=== PATIENT | male | born 2000 | race Caucasian/White ===

== ENCOUNTER 2019-03-08 02:18 | Emergency (ER) | payer BC, SELFPAY ==
[2019-03-08 02:19] VITALS: BP 163/134; PULSE 78; RESP 18; TEMP 36.3; O2SAT 96; BMI 21.2
[2019-03-08 02:25] VITALS: BP 105/56
--- NOTE | 2019-03-08 02:37 | ED.VIS.GEN ---
History of Present Illness Chief Complaint: ETOH Intox Informant: Patient Narrative: She stated he drank too much alcohol and had 2 episodes of emesis. He drank beer and liquor tonight. He is a college [employer] student. Came in for further evaluation as he is too intoxicated per patient. He is able to communicate. He stated he was nauseous but is no longer nauseous. Denies any other symptoms. Stated he feels better after the IV fluids have been started. Current severity is mild to moderate. Denies any other illicit substances. Past Medical History - Allergies and Home Meds Allergies/Adverse Reactions: Allergies No Known Allergies Allergy (Verified 08/06/18 16:45) Primary Care Physician: Carlos Munroe MD [Primary Care Provider] - Prior records reviewed: Yes Past Medical History: None Surgical History: noncontributory Lives: Roommate Smoking Status: Never smoker Alcohol: None Drugs: None Review of Systems General: Denies: Chills, Fever, Sweats Eyes: Denies: Visual changes - bilaterally, Diplopia ENT: Denies: Rhinorrhea, Sore throat Cardiovascular: Denies: Chest pain, Palpitations Respiratory: Denies: Dyspnea, Cough, Dyspnea on exertion Gastrointestinal: Reports: Nausea, Vomiting. Denies: Abdominal pain, Diarrhea, Melena, Hematochezia Genitourinary: Denies: Dysuria, Hematuria, Frequency Musculoskeletal: Denies: Back pain, Extremity Pain Skin: Denies: Rash, Wounds Neurological: Denies: Headache, Weakness, Numbness Physical Exam Vital Signs/Narrative: Vital Signs Temp Pulse Resp BP Pulse Ox 03/08/19 02:25 105/56 L 03/08/19 02:19 97.4 F L 78 18 163/134 H 96 General: Well nourished, Well developed, No Acute Distress Head: Normocephalic, Atraumatic Eyes: Perrl, EOMI ENT: Moist mucous membranes, No rhinorrhea Neck: Supple, Nontender Cardiovascular: Regular rate, Regular rhythm, No murmurs Respiratory: No distress, CTA bilaterally, Chest nontender Abdomen: Soft, Nontender, Nondistended, Normal bowel sounds Back: Nontender, Normal Inspection Extremities: Nontender, No edema Skin: Normal color, No rash Neurological: Alert, Oriented x3, Cranial nerves II-XII grossly intact, Normal Strength, Normal Sensation, - - She is mildly intoxicated with alcohol Psychological: Normal affect, Normal Mood Diagnostic/Tx/Re-eval - Medical Decision Making Monitored in the emergency department. Given IV fluid boluses. Did not want anything for nausea. Resting comfortably and will be discharged upon sobriety. Will be given nausea medicine for home. ED Disposition - Plan for ED Patient: Disposition: Home or Assisted Living Diagnosis: Acute alcohol intoxication Instructions: ED Overdose Alcohol Prescriptions: Ondansetron [Zofran Odt] 4 mg PO Q8H PRN PRN #10 tab PRN Reason: Nausea Referrals: Carlos Munroe MD [Primary Care Provider] -
[2019-03-08] MEDS: 0.9% Normal Saline 1,000 ML 1000 ML IV ×2 (02:50)
[2019-03-08 04:00] VITALS: BP 107/53; PULSE 72; RESP 18; O2SAT 98
[2019-03-08 04:50] VITALS: BP 95/59; PULSE 76; RESP 16; O2SAT 97
[2019-03-08 06:55] VITALS: BP 104/53; PULSE 76; RESP 18; O2SAT 97
== END 2019-03-08 07:06 | disposition home or self-care (01) ==
PROVIDERS: Emergency Provider Emergency Medicine; Family Provider Pediatrics; PCP Pediatrics
DX: F10.129 Alcohol abuse with intoxication, unspecified (principal); Y90.9 Presence of alcohol in blood, level not specified
CPT/HCPCS: 99282; J7030